=== PATIENT | female | born 1950 | race Caucasian/White ===

== ENCOUNTER 2019-07-17 18:55 | Emergency (ER) | payer BC ==
[2019-07-17] MEDS ORDERED: Norco 10/325 MG Tablet PO ONE (20:59)
[2019-07-17] MEDS ORDERED: ENOXAPARIN SODIUM SQ ONE ×2 (21:00→21:05)
--- NOTE | 2019-07-17 21:01 | ERPHSYRPT ---
- History of Present Illness Time Seen by Provider: 07/17/19 20:30 Source: patient, family Exam Limitations: no limitations Patient Subjective Stated Complaint: Swelling, Redness to right lower extremity Triage Nursing Assessment: Patient ambulated into ED and transferred self to bed. Patient A+O X3. Patient's skin pink, warm and dry. Patient states she [place] [facility] [place] for swelling, redness and warm right lower leg. Patient was sent to [facility] for Venous Doppler to right lower leg. Patient was called at home telling her to come to ER. [phone] and was told they never received an official reading but a verbal was given that states patient has a superficial bloood clot in great saphris vein. Patient's right lower leg noted to be red, warm and swollen. Patient complains of pain only when standing or walking. Patient denies SOB. 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 no cp, no soa. pt does not have a pcp. pt was seen at [facility] in [place]. pt was sent to [facility] to obtain a venous doppler of right lower leg. pt was called and told to go to ED because of a clot present in the superficial greater saphenous vein. no official report but a paper that appears to be an email correspondence stating the above. we were unable to verify findings. additionally, [place] unable to send views to the cloud. no one available to obtain final results. does not appear to have been read. Occurred: other (present for a couple of days) Severity of Pain-Max: mild Severity of Pain-Current: mild Lower Extremities Pain: other: right (tenderness and redness in two places of right lower ext) Modifying Factors: Improves With: other (tenderness on palpation) Allergies/Adverse Reactions: levofloxacin [From Levaquin] Allergy (Verified 07/17/19 19:25) Sulfa (Sulfonamide Antibiotics) Allergy (Verified 07/17/19 19:25) sulfamethoxazole [From Bactrim] Allergy (Verified 07/17/19 19:25) trimethoprim [From Bactrim] Allergy (Verified 07/17/19 19:25) Hx Influenza Vaccination/Date Given: No Hx Pneumococcal Vaccination/Date Given: No Immunizations Up to Date: Yes - Review of Systems Constitutional: No Symptoms Eyes: No Symptoms Ears, Nose, & Throat: No Symptoms Respiratory: No Symptoms Cardiac: No Symptoms Abdominal/Gastrointestinal: No Symptoms Genitourinary Symptoms: No Symptoms Musculoskeletal: No Symptoms Skin: Other (superficial redness and tenderness on two sites of right medial calf) Neurological: No Symptoms Psychological: No Symptoms Endocrine: No Symptoms Hematologic/Lymphatic: No Symptoms Immunological/Allergic: No Symptoms All Other Systems: Reviewed and Negative - Past Medical History Pertinent Past Medical History: No Neurological History: No Pertinent History ENT History: No Pertinent History Cardiac History: No Pertinent History Respiratory History: No Pertinent History Endocrine Medical History: No Pertinent History Musculoskeletal History: No Pertinent History GI Medical History: No Pertinent History History: No Pertinent History Psycho-Social History: No Pertinent History Female Reproductive Disorders: No Pertinent History - Past Surgical History Past Surgical History: No Neuro Surgical History: No Pertinent History Cardiac: Other Respiratory: No Pertinent History Gastrointestinal: No Pertinent History Genitourinary: No Pertinent History Musculoskeletal: No Pertinent History Female Surgical History: No Pertinent History Other Surgical History: Julian Varicose vein surgery - Social History Smoking Status: Never smoker Exposure to second hand smoke: No Drug Use: none Patient Lives Alone: No - Female History Hx Last Menstrual Period: menopausal Hx Now: No - Nursing Vital Signs Nursing Vital Signs: Initial Vital Signs Temperature 98.3 F 07/17/19 19:30 Pulse Rate 76 07/17/19 19:30 Respiratory Rate 20 07/17/19 19:30 Blood Pressure 168/88 07/17/19 19:30 O2 Sat by Pulse Oximetry 96 07/17/19 19:30 Pain Scale Pain Intensity 0 - Physical Exam General Appearance: no apparent distress, alert, anxiety Eyes, Ears, Nose, Throat Exam: normal ENT inspection, moist mucous membranes Neck Exam: normal inspection, non-tender, supple, full range of motion Cardiovascular/Respiratory Exam: chest non-tender Gastrointestinal/Abdominal Exam: non-tender Back Exam: normal inspection, normal range of motion, No CVA tenderness, No vertebral tenderness Hips Exam: bilateral: non-tender, normal inspection, normal range of motion, no evidence of injury Legs Exam: right leg: soft tissue tenderness (redness medial aspect right calf) , left leg: non-tender, normal inspection, normal range of motion, no evidence of injury Knees Exam: bilateral knee: non-tender, normal inspection, normal range of motion, no evidence of injury Ankle Exam: bilateral ankle: non-tender, normal inspection, normal range of motion, no evidence of injury Foot Exam: bilateral foot: non-tender, normal inspection, normal range of motion Neuro/Tendon Exam: normal sensation, normal motor functions, normal tendon functions Mental Status Exam: alert, oriented x 3, cooperative Skin Exam: other (see above) SpO2 Interpretation: normal SpO2: 96 O2 Delivery: Room Air Ordered Tests: Medication Summary Discontinued Medications Generic Name Dose Route Start Last Admin Trade Name Veronica PRN Reason Stop Dose Admin Hydrocodone Bitart/Acetaminophen 1 tab 07/17/19 20:59 07/17/19 21:10 Franklin 10/325 Mg Tablet PO 07/17/19 21:00 Not Given STAT ONE Hydrocodone Bitart/Acetaminophen Confirm 07/17/19 21:05 Franklin 10/325 Mg Tablet Administered 07/17/19 21:06 Dose 1 tab .ROUTE .STK-MED ONE Enoxaparin Sodium 80 mg 07/17/19 21:00 07/17/19 21:08 Enoxaparin Sodium SQ 07/17/19 21:01 80 mg STAT ONE Administration Enoxaparin Sodium Confirm 07/17/19 21:05 Enoxaparin Sodium Administered 07/17/19 21:06 Dose 80 mg SQ .STK-MED ONE - Progress Progress: unchanged Progress Note: 07/17/19 21:54 i feel pt most like has a superficial thrombophlebitis. however, report given to patient states to go to ED in order for evaluation to maybe begin anticoag tx. however, clots in superficial greater saphenous veins are not typically tx with anticoag. since i do not have a full report or the ability to obtain study , will tx temporarily with lovenox, have pt obtain full and final report and have pt follow up with dr. nuñez wednesday07/19/19. i have d/w him and he agrees. Counseled pt/family regarding: diagnosis, need for follow-up - Departure Departure Disposition: Home Clinical Impression: Superficial thrombophlebitis, Greater saphenous vein embolism Condition: Stable Critical Care Time: No Referrals: DOCTOR,NO FAMILY [Primary Care Provider] - Additional Instructions: Warm compresses to right lower leg site 2 times daily for 15 minutes not directly on skinfollow up tomorrow with [facility] to obtain full and final venous doppler report. give yourself lovenox injection as prescribed tomorrow. call dr. Nuñez' office tomorrow to arrange for follow up appointment on Wednesday07/19/19. Tell them Dr. Mobley spoke with Dr. Nuñez. Prescriptions: Enoxaparin Sodium [Lovenox] 80 mg SQ BID #2 syr
[2019-07-17] MEDS ORDERED: Norco 10/325 MG Tablet ONE (21:05)
[2019-07-17 22:26] VITALS: BP 133/74; PULSE 68; O2SAT 95
== END 2019-07-17 22:25 | disposition home or self-care (01) ==
LOC: ED 18:55
DX: I80.01 Phlebitis and thrombophlebitis of superficial vessels of right lower extremity (principal); M79.89 Other specified soft tissue disorders; I83.90 Asymptomatic varicose veins of unspecified lower extremity
CPT/HCPCS: 96372; 99283; J1650; A9270-GY

== ENCOUNTER 2021-07-06 16:34 | Inpatient (IN) | payer BC, MEDICARE ==
[2021-07-06] MEDS: Ativan 1 MG PO PRN (23:16)
[2021-07-06] MEDS: TYLENOL EXTRA STRENGTH 500 MG PO PRN (23:16)
[2021-07-07 06:34] LABS: Hematocrit 46.8 % (35-47); Hemoglobin 14.9 gm/dl (12.0-16.0); Mean Cell Volume 91.2 fl (78-100); Mean Corpuscular Hgb Concent. 31.8 g/dl (32-36); Mean Platelet Volume 10.5 fl (7.5-11.0); Platelet Count 307 K/mm3 (150-450); Red Blood Count 5.13 M/mm3 (4.1-5.4); Red Cell Distribution Width 13.9 % (11.5-14.0); White Blood Count 8.2 K/mm3 (4.0-10.5)
[2021-07-07] MEDS ORDERED: Sodium Chloride 0.9% 10 ML FLUSH Syringe IV PRN (07:30)
[2021-07-07] MEDS: Ativan 1 MG PO PRN ×3 (08:14→22:37)
[2021-07-07] MEDS: TYLENOL EXTRA STRENGTH 500 MG PO PRN ×3 (08:14→22:37)
[2021-07-07] MEDS: DECADRON 10MG INJ. IV SCH (09:31)
[2021-07-07] MEDS: REMDESIVIR 100 MG in Sodium Chloride 0.9% 100 ML BAG 100 ML IV SCH (09:31)
[2021-07-07] MEDS: ENOXAPARIN SODIUM SQ SCH (09:32)
[2021-07-07] MEDS ORDERED: Decadron 4 MG INJ IV SCH (10:00)
--- NOTE | 2021-07-07 12:29 | XRAY ---
Indication: Positive Covid 19. Comparison: None Portable chest demonstrates diffuse bilateral airspace disease greatest in right upper lobe. Incidental right upper lobe calcified granuloma and right hemidiaphragm elevation. Heart not enlarged. Bony thorax intact.
[2021-07-07] MEDS: OLUMIANT PO SCH (13:05)
--- NOTE | 2021-07-07 14:59 | HP ---
CHIEF COMPLAINT: Shortness of breath, headache, weakness. HISTORY OF PRESENT ILLNESS: The patient was transferred from [facility][1] in order to get close to home. She had been there four days being treated with COVID drugs. She has not had the vaccine. She does not smoke. She has been treated with Zithromax, Rocephin, Dexamethasone, enoxaparin 40 mg, Remdesivir daily, Tylenol, Albuterol, Dexamethasone 6 mg a day, Tylenol. She was hypoxic on admission to [facility] with 80% on room air. She has remained hypoxic unless she has got 5 liters on by nasal cannula. PAST MEDICAL HISTORY: Occasional migraine. She denies any blood clots or diabetes. She states she was mildly hypertensive at [facility] but is not hypertensive at home. Her tested positive for COVID before she did. PHYSICAL EXAMINATION: The patient is an appropriately aged 71 year-old white female who is pleasant and is in obvious pain clutching her head with a migraine. VITAL SIGNS: Temperature 98.2F, blood pressure 142/70. O2 saturation 92% on 5 liters. HEENT: Pupils equal and reactive to light. NECK: Supple. No adenopathy. CHEST: Few crackles bilateral. CVS: Regular rate. No murmurs or gallops. ABDOMEN: Soft. No masses or organomegaly. Slightly heavy. EXTREMITIES: Good pulses. No edema. No cyanosis. IMPRESSION: The patient has COVID pneumonia, migraine headache. CT showed some nodules 5 mm which are probably not significant which will be followed up with by her primary care doctor once she recovers from this. PROGNOSIS: Fair.
[2021-07-07] MEDS: Sodium Chloride 0.9% 10 ML FLUSH Syringe IV SCH ×2 (16:53→21:02)
[2021-07-07] MEDS ORDERED: REMDESIVIR 100 MG in Sodium Chloride 0.9% 100 ML BAG 100 ML IV SCH (22:29)
[2021-07-08 05:44] LABS: Hematocrit 45.3 % (35-47); Hemoglobin 14.4 gm/dl (12.0-16.0); Mean Cell Volume 92.3 fl (78-100); Mean Corpuscular Hemoglobin 29.3 pg (26-32); Mean Corpuscular Hgb Concent. 31.8 g/dl (32-36); Mean Platelet Volume 9.4 fl (7.5-11.0); Platelet Count 362 K/mm3 (150-450); Red Blood Count 4.91 M/mm3 (4.1-5.4); Red Cell Distribution Width 14.1 % (11.5-14.0); White Blood Count 9.6 K/mm3 (4.0-10.5)
[2021-07-08] MEDS: Sodium Chloride 0.9% 10 ML FLUSH Syringe IV SCH ×3 (05:47→22:46)
[2021-07-08 06:30] LABS: ALBUMIN 3.2 g/dL (3.5-5.0); ALKALINE PHOSPHATASE 45 U/L (38-126); ANION GAP 9.8 MEQ/L (5-15); BLOOD UREA NITROGEN 28 mg/dL (7-17); CHLORIDE 104 mmol/L (98-107); Carbon Dioxide 28 mmol/L (22-30); Creatinine 1 0.66 mg/dL (0.52-1.04); EST GLOMERULAR FILTRATION RATE > 60.0 ML/MIN; Glucose 113 mg/dL (74-106); Potassium 4.4 mmol/L (3.5-5.1); SGOT/AST 33 U/L (14-36); SGPT/ALT 31 U/L (0-35); SODIUM 137 mmol/L (137-145); Total Protein 6.3 g/dL (6.3-8.2)
[2021-07-08] MEDS ORDERED: Ventolin Hfa MDI IH PRN (07:13)
[2021-07-08] MEDS ORDERED: VENTOLIN COMMON CANISTER IH PRN (07:15)
[2021-07-08 08:04] LABS: ANISOCYTOSIS 1+; Lymphocytes 8 % (24-44); Monocyte 6 % (0.0-12.0); Neutrophils 86 % (36.0-66.0); Platelet Estimate NORMAL (NORMAL); Total Cells Counted 100
[2021-07-08] MEDS: DECADRON 10MG INJ. IV SCH (10:08)
[2021-07-08] MEDS: ZOLOFT 50 MG TABLET PO SCH (10:08)
[2021-07-08] MEDS: ENOXAPARIN SODIUM SQ SCH (10:08)
[2021-07-08] MEDS: NORVASC 5 MG PO SCH (10:08)
[2021-07-08] MEDS: REMDESIVIR 100 MG in Sodium Chloride 0.9% 100 ML BAG 100 ML IV SCH (10:08)
[2021-07-08] MEDS: OLUMIANT PO SCH (13:47)
[2021-07-09] MEDS: Sodium Chloride 0.9% 10 ML FLUSH Syringe IV SCH ×3 (06:04→20:03)
[2021-07-09 06:11] LABS: INR 1.25 (0.8-3.0); PROTIME 14.7 SECONDS (9.4-12.5)
[2021-07-09 06:30] LABS: ALBUMIN 3.4 g/dL (3.5-5.0); ALKALINE PHOSPHATASE 51 U/L (38-126); BLOOD UREA NITROGEN 33 mg/dL (7-17); CHLORIDE 105 mmol/L (98-107); Calcium 9.2 mg/dL (8.4-10.2); Carbon Dioxide 28 mmol/L (22-30); Creatinine 1 0.78 mg/dL (0.52-1.04); EST GLOMERULAR FILTRATION RATE > 60.0 ML/MIN; Glucose 116 mg/dL (74-106); Potassium 4.4 mmol/L (3.5-5.1); SGOT/AST 40 U/L (14-36); SGPT/ALT 30 U/L (0-35); SODIUM 140 mmol/L (137-145); Total Protein 6.5 g/dL (6.3-8.2)
[2021-07-09] MEDS: REMDESIVIR 100 MG in Sodium Chloride 0.9% 100 ML BAG 100 ML IV SCH (09:46)
[2021-07-09] MEDS: OLUMIANT PO SCH (09:49)
[2021-07-09] MEDS: NORVASC 5 MG PO SCH (09:50)
[2021-07-09] MEDS: DECADRON 10MG INJ. IV SCH (09:50)
[2021-07-09] MEDS: ENOXAPARIN SODIUM SQ SCH (09:50)
[2021-07-09] MEDS: ZOLOFT 50 MG TABLET PO SCH (09:50)
--- NOTE | 2021-07-09 11:51 | PROG NOTE ---
DATE: 07/09/2021 CHIEF COMPLAINT: Shortness of breath, confusion, achiness. HISTORY OF PRESENT ILLNESS: A 71-year-old white female presented to the emergency room probably in [place] and transferred to [facility] on 06/23/2021. She tested for COVID about that day. The is positive but not real sick. She had a progressive declined and ended up at [facility]. I guess she was unhappy there after several days and asked to be transferred closer to home. Extreme fatigue. No chest pain. Denied fever or chills when she was admitted. She has a very little cough then or now. She was hypoxic, 80% on room air otherwise stable. Laboratory work was normal. Chest x-ray showed bibasilar infiltrates on admission at [place] and she was started on dexamethasone. MEDICATIONS: At home were Albuterol PRN, Xanax 0.25 every six hours PRN anxiety, Norvasc 5, hydralazine 10 mg t.i.d., Zoloft 50 q.d., ubidecarenone (Co Q-10). Lovenox 80 subcu apparently just a [facility] dose. These were continued except we adjusted her subcu Lovenox, held hydralazine as her blood pressure is not high and that is an ancient medicine with fatigue as a side effect especially in the elderly. Her Co Q-10 was also held. ALLERGIES: AZITHROMYCIN. LEVOFLOXACIN. SULFAMETHOXAZOLE. TRIMETHOPRIM. REVIEW OF SYSTEMS: CONSTITUTIONAL: No fever, chills or sweats. HEENT: No specific problems hearing or seeing. CVS: Denies heart problems. PULMONARY: Nonsmoker. No abdominal pain. MUSCULOSKELETAL: Very weak, achy all over. LAB DATA AND TESTS: Her blood work showed her white count was normal. D-dimer was markedly elevated. Chest x-ray showed bilateral pneumonia, will repeat that tomorrow as it has been several days. D-dimer was like 1700. Albumin slightly low at 3.4. PHYSICAL EXAMINATION: The patient speaks clearly. She has got a very tired voice. She is confused to place, time and who I am at first but after several days though she recognized me and that I took care of her mother and had more definite questions as "How is my " who is much better and this was after we decreased anxiety medicine of Ativan. VITAL SIGNS: Pulse 90, respirations 20. O2 saturation 90% on 15 liters this morning with an Oxymizer. IMPRESSION: The patient has: 1) COVID pneumonia severe. She had a CT scan which showed some pulmonary nodules that are probably too small to be anything but granulomas and she will be followed up in one year. 2) Possible history of hypertension. 3) History of some delirium maybe related to disease and may be related to medication. I will further evaluate her as she gets well. PLAN: Remdesivir, dexamethasone, Lovenox, Imitrex for migraine she is having. Olumiant 4 mg q.d., Ativan if she gets anxious, continue her Norvasc, Xanax 0.25 PRN, Zoloft 50 q.d. PROGNOSIS: Fair.
[2021-07-10] MEDS: Sodium Chloride 0.9% 10 ML FLUSH Syringe IV SCH ×2 (04:24→18:58)
[2021-07-10 05:44] LABS: INR 1.22 (0.8-3.0); PROTIME 14.4 SECONDS (9.4-12.5)
[2021-07-10 05:45] LABS: ALBUMIN 3.7 g/dL (3.5-5.0); ALKALINE PHOSPHATASE 53 U/L (38-126); BLOOD UREA NITROGEN 32 mg/dL (7-17); CHLORIDE 103 mmol/L (98-107); Calcium 9.5 mg/dL (8.4-10.2); Carbon Dioxide 31 mmol/L (22-30); Creatinine 1 0.83 mg/dL (0.52-1.04); EST GLOMERULAR FILTRATION RATE > 60.0 ML/MIN; Glucose 111 mg/dL (74-106); Potassium 4.6 mmol/L (3.5-5.1); SGOT/AST 39 U/L (14-36); SGPT/ALT 33 U/L (0-35); SODIUM 140 mmol/L (137-145)
[2021-07-10 07:44] LABS: Absolute Neutrophil Ct (ANC) 7.94 (1.4-6.9); Basophil (Absolute #) 0 (0-0.4); Eosinophil (Absolute #) 0 (0-0.5); Hemoglobin 15.9 gm/dl (12.0-16.0); Lymphocyte (Absolute #) 0.99 (1.0-4.6); Mean Cell Volume 93.6 fl (78-100); Mean Corpuscular Hemoglobin 29.2 pg (26-32); Mean Corpuscular Hgb Concent. 31.2 g/dl (32-36); Mean Platelet Volume 10.4 fl (7.5-11.0); Monocyte (Absolute #) 0.98 (0.0-1.3); Monocytes % 9.9 % (0.0-12.0); Neutrophil % 80.1 % (36.0-66.0); Platelet Count 357 K/mm3 (150-450); Red Blood Count 5.45 M/mm3 (4.1-5.4); Red Cell Distribution Width 14.2 % (11.5-14.0); White Blood Count 9.9 K/mm3 (4.0-10.5)
--- NOTE | 2021-07-10 08:34 | XRAY ---
Indication: Short of breath. Positive Covid 19. Comparison: July 07, 2021. Portable chest again demonstrates diffuse bilateral airspace disease with new patchy consolidations greatest in both lung bases and new small left effusion. Again incidental right upper lobe calcified granuloma and right hemidiaphragm elevation. Heart not enlarged for AP portable technique.
[2021-07-10] MEDS: NORVASC 5 MG PO SCH (09:36)
[2021-07-10] MEDS: DECADRON 10MG INJ. IV SCH (09:36)
[2021-07-10] MEDS: OLUMIANT PO SCH (09:36)
[2021-07-10] MEDS: ZOLOFT 50 MG TABLET PO SCH (09:36)
[2021-07-10] MEDS: ENOXAPARIN SODIUM SQ SCH (09:38)
[2021-07-10] MEDS: REMDESIVIR 100 MG in Sodium Chloride 0.9% 100 ML BAG 100 ML IV SCH (09:38)
[2021-07-11] MEDS: Sodium Chloride 0.9% 10 ML FLUSH Syringe IV SCH ×4 (02:16→23:01)
[2021-07-11 07:27] LABS: Absolute Neutrophil Ct (ANC) 6.22 (1.4-6.9); BASOPHIL % 0.1 % (0.0-0.4); Basophil (Absolute #) 0.01 (0-0.4); Eosinophil (Absolute #) 0 (0-0.5); Hematocrit 48.5 % (35-47); Hemoglobin 15.5 gm/dl (12.0-16.0); Lymphocytes % 12.1 % (24.0-44.0); Mean Corpuscular Hemoglobin 29.4 pg (26-32); Mean Platelet Volume 9.7 fl (7.5-11.0); Monocyte (Absolute #) 1.02 (0.0-1.3); Monocytes % 12.4 % (0.0-12.0); Neutrophil % 75.4 % (36.0-66.0); Platelet Count 306 K/mm3 (150-450); Red Blood Count 5.27 M/mm3 (4.1-5.4); Red Cell Distribution Width 13.8 % (11.5-14.0); White Blood Count 8.3 K/mm3 (4.0-10.5)
[2021-07-11 07:41] LABS: INR 1.27 (0.8-3.0)
[2021-07-11 07:55] LABS: ALBUMIN 3.5 g/dL (3.5-5.0); ALKALINE PHOSPHATASE 49 U/L (38-126); ANION GAP 9.9 MEQ/L (5-15); BLOOD UREA NITROGEN 31 mg/dL (7-17); CHLORIDE 104 mmol/L (98-107); Calcium 9.2 mg/dL (8.4-10.2); Carbon Dioxide 29 mmol/L (22-30); Creatinine 1 0.68 mg/dL (0.52-1.04); EST GLOMERULAR FILTRATION RATE > 60.0 ML/MIN; Glucose 112 mg/dL (74-106); SGOT/AST 30 U/L (14-36); SGPT/ALT 28 U/L (0-35); SODIUM 139 mmol/L (137-145); Total Protein 6.5 g/dL (6.3-8.2)
[2021-07-11] MEDS: ENOXAPARIN SODIUM SQ SCH (09:21)
[2021-07-11] MEDS: NORVASC 5 MG PO SCH (09:21)
[2021-07-11] MEDS: DECADRON 10MG INJ. IV SCH (09:21)
[2021-07-11] MEDS: OLUMIANT PO SCH (09:21)
[2021-07-11] MEDS: ZOLOFT 50 MG TABLET PO SCH (09:21)
--- NOTE | 2021-07-11 12:53 | PROG NOTE ---
CHIEF COMPLAINT: Short of breath. HISTORY OF PRESENT ILLNESS: A 71 year-old white female who has been hospitalized she states for two weeks with COVID. She is now alert, orientated, much better than when she came in. Unfortunately her lungs have been pretty well devastated by the COVID. She has been on all her usual medications. She is still requiring high flow oxygen and not really improving any. She is sitting up occasionally in a chair. She is able to eat and drink okay, rather sleepy a lot. CMP was normal three days ago. Her D-dimer is still elevated. Chest few crackles. Heart sounds regular. LAB DATA AND TESTS: Her chest x-ray were three days ago and showed diffuse bilateral airspace disease with patchy consolidation in both lungs more in upper. IMPRESSION: I explained to her that it going to be a couple of weeks before she can go home because she just cannot go home on the level of oxygen that she is on now. We cannot supply that plus she is weak. Her disease seems to be stable and progressive. It seems like she is left with the damage. Will continue with the Remdesivir, steroids. We cut her Ativan down due to some confusion. Blood pressure is okay without Apresoline. Zoloft will be continued. PROGNOSIS: Fair.
[2021-07-12] MEDS: Sodium Chloride 0.9% 10 ML FLUSH Syringe IV SCH ×3 (06:45→22:51)
[2021-07-12 06:54] LABS: Absolute Neutrophil Ct (ANC) 7.24 (1.4-6.9); Basophil (Absolute #) 0 (0-0.4); Eosinophil (Absolute #) 0 (0-0.5); Hematocrit 47.8 % (35-47); Hemoglobin 15.4 gm/dl (12.0-16.0); Lymphocyte (Absolute #) 1.14 (1.0-4.6); Lymphocytes % 12.1 % (24.0-44.0); Mean Cell Volume 91.4 fl (78-100); Mean Corpuscular Hemoglobin 29.4 pg (26-32); Mean Corpuscular Hgb Concent. 32.2 g/dl (32-36); Monocyte (Absolute #) 1.06 (0.0-1.3); Monocytes % 11.2 % (0.0-12.0); Neutrophil % 76.7 % (36.0-66.0); Platelet Count 310 K/mm3 (150-450); Red Blood Count 5.23 M/mm3 (4.1-5.4); Red Cell Distribution Width 13.8 % (11.5-14.0); White Blood Count 9.4 K/mm3 (4.0-10.5)
[2021-07-12 06:59] LABS: INR 1.24 (0.8-3.0); PROTIME 14.6 SECONDS (9.4-12.5)
[2021-07-12 07:00] LABS: ALBUMIN 3.5 g/dL (3.5-5.0); ALKALINE PHOSPHATASE 49 U/L (38-126); ANION GAP 11.8 MEQ/L (5-15); BLOOD UREA NITROGEN 32 mg/dL (7-17); CHLORIDE 105 mmol/L (98-107); Calcium 9.2 mg/dL (8.4-10.2); Carbon Dioxide 28 mmol/L (22-30); Creatinine 1 0.82 mg/dL (0.52-1.04); EST GLOMERULAR FILTRATION RATE > 60.0 ML/MIN; Glucose 99 mg/dL (74-106); Potassium 4.1 mmol/L (3.5-5.1); SGOT/AST 27 U/L (14-36); SGPT/ALT 25 U/L (0-35); SODIUM 141 mmol/L (137-145); Total Protein 6.6 g/dL (6.3-8.2)
[2021-07-12] MEDS: OLUMIANT PO SCH (10:10)
[2021-07-12] MEDS: ZOLOFT 50 MG TABLET PO SCH (10:10)
[2021-07-12] MEDS: ENOXAPARIN SODIUM SQ SCH (10:10)
[2021-07-12] MEDS: NORVASC 5 MG PO SCH (10:10)
[2021-07-12] MEDS: DECADRON 10MG INJ. IV SCH (10:11)
[2021-07-12] MEDS: REMDESIVIR 100 MG in Sodium Chloride 0.9% 100 ML BAG 100 ML IV SCH (11:02)
--- NOTE | 2021-07-12 19:25 | XRAY ---
Indication: Follow-up Covid 19. Comparison: July 10, 2021. Portable chest demonstrates grossly stable diffuse bilateral consolidating/nonconsolidating airspace disease. No large effusion. Heart not enlarged. No new cardiopulmonary abnormalities.
[2021-07-13] MEDS: xanAX 0.25 MG PO SCH ×2 (02:04→12:57)
[2021-07-13] MEDS: Sodium Chloride 0.9% 10 ML FLUSH Syringe IV SCH ×4 (06:15→21:17)
[2021-07-13 07:35] LABS: Absolute Neutrophil Ct (ANC) 6.71 (1.4-6.9); Basophil (Absolute #) 0 (0-0.4); Eosinophil (Absolute #) 0 (0-0.5); Hematocrit 46.8 % (35-47); Lymphocyte (Absolute #) 1.32 (1.0-4.6); Lymphocytes % 14.5 % (24.0-44.0); Mean Cell Volume 92.7 fl (78-100); Mean Corpuscular Hemoglobin 29.7 pg (26-32); Mean Corpuscular Hgb Concent. 32.1 g/dl (32-36); Mean Platelet Volume 10.2 fl (7.5-11.0); Monocyte (Absolute #) 1.07 (0.0-1.3); Monocytes % 11.8 % (0.0-12.0); Neutrophil % 73.7 % (36.0-66.0); Platelet Count 284 K/mm3 (150-450); Red Blood Count 5.05 M/mm3 (4.1-5.4); White Blood Count 9.1 K/mm3 (4.0-10.5)
[2021-07-13 07:36] LABS: INR 1.24 (0.8-3.0); PROTIME 14.6 SECONDS (9.4-12.5)
[2021-07-13 07:43] LABS: ALBUMIN 3.4 g/dL (3.5-5.0); ALKALINE PHOSPHATASE 48 U/L (38-126); ANION GAP 9.6 MEQ/L (5-15); BLOOD UREA NITROGEN 31 mg/dL (7-17); CHLORIDE 104 mmol/L (98-107); Carbon Dioxide 28 mmol/L (22-30); Creatinine 1 0.76 mg/dL (0.52-1.04); EST GLOMERULAR FILTRATION RATE > 60.0 ML/MIN; Glucose 93 mg/dL (74-106); SGOT/AST 31 U/L (14-36); SGPT/ALT 21 U/L (0-35); SODIUM 138 mmol/L (137-145); Total Protein 6.3 g/dL (6.3-8.2)
[2021-07-13] MEDS: NORVASC 5 MG PO SCH (09:18)
[2021-07-13] MEDS: ZOLOFT 50 MG TABLET PO SCH (09:18)
[2021-07-13] MEDS: DECADRON 10MG INJ. IV SCH (09:19)
[2021-07-13] MEDS: OLUMIANT PO SCH (09:19)
[2021-07-13] MEDS: ENOXAPARIN SODIUM SQ SCH (09:19)
[2021-07-13] MEDS: REMDESIVIR 100 MG in Sodium Chloride 0.9% 100 ML BAG 100 ML IV SCH (09:24)
[2021-07-13] MEDS: TYLENOL EXTRA STRENGTH 500 MG PO PRN (16:29)
[2021-07-13] MEDS: Ativan 1 MG PO PRN (17:27)
[2021-07-14] MEDS: TYLENOL EXTRA STRENGTH 500 MG PO PRN (01:49)
[2021-07-14] MEDS: xanAX 0.25 MG PO SCH ×2 (01:49→21:30)
[2021-07-14 06:05] LABS: Absolute Neutrophil Ct (ANC) 6.32 (1.4-6.9); Basophil (Absolute #) 0 (0-0.4); Eosinophil (Absolute #) 0 (0-0.5); Hematocrit 46.6 % (35-47); Hemoglobin 14.6 gm/dl (12.0-16.0); Lymphocyte (Absolute #) 1.09 (1.0-4.6); Lymphocytes % 13.2 % (24.0-44.0); Mean Cell Volume 93.2 fl (78-100); Mean Corpuscular Hemoglobin 29.2 pg (26-32); Mean Corpuscular Hgb Concent. 31.3 g/dl (32-36); Mean Platelet Volume 10.1 fl (7.5-11.0); Monocyte (Absolute #) 0.86 (0.0-1.3); Monocytes % 10.4 % (0.0-12.0); Neutrophil % 76.4 % (36.0-66.0); Platelet Count 271 K/mm3 (150-450); Red Cell Distribution Width 13.8 % (11.5-14.0); White Blood Count 8.3 K/mm3 (4.0-10.5)
[2021-07-14] MEDS: Sodium Chloride 0.9% 10 ML FLUSH Syringe IV SCH ×3 (06:12→21:29)
[2021-07-14 06:16] LABS: ALBUMIN 3.3 g/dL (3.5-5.0); ALKALINE PHOSPHATASE 43 U/L (38-126); ANION GAP 9.7 MEQ/L (5-15); BLOOD UREA NITROGEN 31 mg/dL (7-17); CHLORIDE 104 mmol/L (98-107); Calcium 8.8 mg/dL (8.4-10.2); Carbon Dioxide 29 mmol/L (22-30); Creatinine 1 0.69 mg/dL (0.52-1.04); EST GLOMERULAR FILTRATION RATE > 60.0 ML/MIN; Glucose 89 mg/dL (74-106); Potassium 4.1 mmol/L (3.5-5.1); SGOT/AST 25 U/L (14-36); SGPT/ALT 18 U/L (0-35); SODIUM 139 mmol/L (137-145); Total Protein 6.1 g/dL (6.3-8.2)
[2021-07-14 06:21] LABS: INR 1.24 (0.8-3.0); PROTIME 14.6 SECONDS (9.4-12.5)
[2021-07-14 07:06] LABS: Appearance SLIGHTLY CLOUDY (CLEAR); Bacteria RARE /HPF (NEGATIVE); Bilirubin NEGATIVE (NEGATIVE); Blood NEGATIVE Ery/ul (0-5); Epithelial Cells RARE /HPF (FEW); Glucose NEGATIVE (NEGATIVE); Ketones NEGATIVE (NEGATIVE); Leukocyte Esterase TRACE (NEGATIVE); Mucus SLIGHT /HPF (NEGATIVE); Nitrite NEGATIVE (NEGATIVE); Protein,Urine Dip NEGATIVE (Negative); RBC 0-2 /HPF (0-2); Specific Gravity 1.029 (1.005-1.025); Urobilinogen NEGATIVE mg/dL (0-1)
[2021-07-14] MEDS: DECADRON 10MG INJ. IV SCH (10:26)
[2021-07-14] MEDS: ENOXAPARIN SODIUM SQ SCH (10:29)
[2021-07-14] MEDS: NORVASC 5 MG PO SCH (10:29)
[2021-07-14] MEDS: OLUMIANT PO SCH (10:29)
[2021-07-14] MEDS: ZOLOFT 50 MG TABLET PO SCH (10:29)
[2021-07-14] MEDS: REMDESIVIR 100 MG in Sodium Chloride 0.9% 100 ML BAG 100 ML IV SCH (10:29)
[2021-07-14] MEDS: Ativan 1 MG PO PRN ×2 (12:54→21:32)
[2021-07-15 06:04] LABS: Absolute Neutrophil Ct (ANC) 5.56 (1.4-6.9); BASOPHIL % 0.1 % (0.0-0.4); Basophil (Absolute #) 0.01 (0-0.4); Eosinophil (Absolute #) 0 (0-0.5); Hematocrit 45.6 % (35-47); Hemoglobin 14.2 gm/dl (12.0-16.0); Lymphocyte (Absolute #) 1.14 (1.0-4.6); Lymphocytes % 15.3 % (24.0-44.0); Mean Cell Volume 92.9 fl (78-100); Mean Corpuscular Hemoglobin 28.9 pg (26-32); Mean Corpuscular Hgb Concent. 31.1 g/dl (32-36); Mean Platelet Volume 9.9 fl (7.5-11.0); Monocyte (Absolute #) 0.73 (0.0-1.3); Monocytes % 9.8 % (0.0-12.0); Neutrophil % 74.8 % (36.0-66.0); Platelet Count 246 K/mm3 (150-450); Red Blood Count 4.91 M/mm3 (4.1-5.4); Red Cell Distribution Width 13.6 % (11.5-14.0); White Blood Count 7.4 K/mm3 (4.0-10.5)
[2021-07-15] MEDS: Sodium Chloride 0.9% 10 ML FLUSH Syringe IV SCH ×3 (06:16→21:22)
[2021-07-15 06:17] LABS: INR 1.26 (0.8-3.0); PROTIME 14.9 SECONDS (9.4-12.5)
[2021-07-15 06:24] LABS: ALBUMIN 3.1 g/dL (3.5-5.0); ALKALINE PHOSPHATASE 42 U/L (38-126); ANION GAP 8.7 MEQ/L (5-15); BLOOD UREA NITROGEN 26 mg/dL (7-17); CHLORIDE 104 mmol/L (98-107); Calcium 8.6 mg/dL (8.4-10.2); Carbon Dioxide 28 mmol/L (22-30); Creatinine 1 0.62 mg/dL (0.52-1.04); EST GLOMERULAR FILTRATION RATE > 60.0 ML/MIN; Glucose 88 mg/dL (74-106); Potassium 4.1 mmol/L (3.5-5.1); SGOT/AST 31 U/L (14-36); SGPT/ALT 19 U/L (0-35); SODIUM 137 mmol/L (137-145); Total Protein 5.8 g/dL (6.3-8.2)
[2021-07-15] MEDS: ENOXAPARIN SODIUM SQ SCH (09:15)
[2021-07-15] MEDS: DECADRON 10MG INJ. IV SCH (09:16)
[2021-07-15] MEDS: NORVASC 5 MG PO SCH (09:16)
[2021-07-15] MEDS: OLUMIANT PO SCH (09:16)
[2021-07-15] MEDS: xanAX 0.25 MG PO PRN (09:16)
[2021-07-15] MEDS: ZOLOFT 50 MG TABLET PO SCH (09:16)
[2021-07-15] MEDS: TYLENOL EXTRA STRENGTH 500 MG PO PRN ×2 (09:17→21:22)
[2021-07-15] MEDS: REMDESIVIR 100 MG in Sodium Chloride 0.9% 100 ML BAG 100 ML IV SCH (09:33)
[2021-07-15] MEDS: Ativan 1 MG PO PRN (21:22)
[2021-07-16 05:53] LABS: Basophil (Absolute #) 0 (0-0.4); Eosinophil (Absolute #) 0 (0-0.5); Hematocrit 44.8 % (35-47); Hemoglobin 14.3 gm/dl (12.0-16.0); Lymphocyte (Absolute #) 1.19 (1.0-4.6); Lymphocytes % 15.4 % (24.0-44.0); Mean Cell Volume 92.2 fl (78-100); Mean Corpuscular Hemoglobin 29.4 pg (26-32); Mean Corpuscular Hgb Concent. 31.9 g/dl (32-36); Mean Platelet Volume 10.2 fl (7.5-11.0); Monocyte (Absolute #) 0.82 (0.0-1.3); Monocytes % 10.6 % (0.0-12.0); Platelet Count 229 K/mm3 (150-450); Red Blood Count 4.86 M/mm3 (4.1-5.4); Red Cell Distribution Width 13.6 % (11.5-14.0); White Blood Count 7.7 K/mm3 (4.0-10.5)
[2021-07-16 06:12] LABS: ALBUMIN 3.1 g/dL (3.5-5.0); ALKALINE PHOSPHATASE 47 U/L (38-126); ANION GAP 8.4 MEQ/L (5-15); BLOOD UREA NITROGEN 26 mg/dL (7-17); CHLORIDE 103 mmol/L (98-107); Calcium 8.8 mg/dL (8.4-10.2); Carbon Dioxide 29 mmol/L (22-30); Creatinine 1 0.68 mg/dL (0.52-1.04); EST GLOMERULAR FILTRATION RATE > 60.0 ML/MIN; Glucose 98 mg/dL (74-106); Potassium 3.9 mmol/L (3.5-5.1); SGOT/AST 28 U/L (14-36); SGPT/ALT 24 U/L (0-35); SODIUM 137 mmol/L (137-145); Total Protein 5.9 g/dL (6.3-8.2)
[2021-07-16] MEDS: Sodium Chloride 0.9% 10 ML FLUSH Syringe IV SCH ×3 (06:46→23:55)
[2021-07-16 06:50] LABS: INR 1.21 (0.8-3.0); PROTIME 14.3 SECONDS (9.4-12.5)
[2021-07-16] MEDS: DECADRON 10MG INJ. IV SCH (08:58)
[2021-07-16] MEDS: OLUMIANT PO SCH (08:58)
[2021-07-16] MEDS: ENOXAPARIN SODIUM SQ SCH (08:58)
[2021-07-16] MEDS: TYLENOL EXTRA STRENGTH 500 MG PO PRN (08:59)
[2021-07-16] MEDS: NORVASC 5 MG PO SCH (08:59)
[2021-07-16] MEDS: ZOLOFT 50 MG TABLET PO SCH (08:59)
[2021-07-16] MEDS: xanAX 0.25 MG PO PRN (08:59)
[2021-07-16] MEDS: REMDESIVIR 100 MG in Sodium Chloride 0.9% 100 ML BAG 100 ML IV SCH (09:57)
[2021-07-17] MEDS: Ativan 1 MG PO PRN (00:10)
[2021-07-17] MEDS: TYLENOL EXTRA STRENGTH 500 MG PO PRN (00:10)
[2021-07-17 06:30] LABS: Hematocrit 44.7 % (35-47); Hemoglobin 14.3 gm/dl (12.0-16.0); Mean Cell Volume 91.6 fl (78-100); Mean Corpuscular Hemoglobin 29.3 pg (26-32); Mean Platelet Volume 10.5 fl (7.5-11.0); Platelet Count 213 K/mm3 (150-450); Red Blood Count 4.88 M/mm3 (4.1-5.4); Red Cell Distribution Width 13.6 % (11.5-14.0); White Blood Count 14.1 K/mm3 (4.0-10.5)
[2021-07-17 06:44] LABS: ALBUMIN 3.1 g/dL (3.5-5.0); ALKALINE PHOSPHATASE 46 U/L (38-126); BLOOD UREA NITROGEN 25 mg/dL (7-17); CHLORIDE 103 mmol/L (98-107); Calcium 8.8 mg/dL (8.4-10.2); Carbon Dioxide 29 mmol/L (22-30); Creatinine 1 0.64 mg/dL (0.52-1.04); EST GLOMERULAR FILTRATION RATE > 60.0 ML/MIN; Glucose 89 mg/dL (74-106); Potassium 3.9 mmol/L (3.5-5.1); SGOT/AST 41 U/L (14-36); SGPT/ALT 22 U/L (0-35); SODIUM 137 mmol/L (137-145); Total Protein 5.8 g/dL (6.3-8.2)
[2021-07-17] MEDS: ENOXAPARIN SODIUM SQ SCH (09:03)
[2021-07-17] MEDS: OLUMIANT PO SCH (09:04)
[2021-07-17] MEDS: ZOLOFT 50 MG TABLET PO SCH (09:04)
[2021-07-17] MEDS: DECADRON 10MG INJ. IV SCH (09:04)
[2021-07-17] MEDS: NORVASC 5 MG PO SCH (09:04)
[2021-07-17] MEDS: Sodium Chloride 0.9% 10 ML FLUSH Syringe IV SCH ×3 (10:35→22:28)
[2021-07-18 06:34] LABS: Hemoglobin 13.2 gm/dl (12.0-16.0); Mean Cell Volume 92.5 fl (78-100); Mean Corpuscular Hemoglobin 29.1 pg (26-32); Mean Corpuscular Hgb Concent. 31.4 g/dl (32-36); Mean Platelet Volume 11.3 fl (7.5-11.0); Platelet Count 213 K/mm3 (150-450); Red Blood Count 4.54 M/mm3 (4.1-5.4); Red Cell Distribution Width 13.6 % (11.5-14.0)
[2021-07-18 07:28] LABS: ANION GAP 7.3 MEQ/L (5-15); BLOOD UREA NITROGEN 26 mg/dL (7-17); CHLORIDE 104 mmol/L (98-107); Calcium 8.5 mg/dL (8.4-10.2); Carbon Dioxide 29 mmol/L (22-30); Creatinine 1 0.72 mg/dL (0.52-1.04); EST GLOMERULAR FILTRATION RATE > 60.0 ML/MIN; Glucose 94 mg/dL (74-106); SODIUM 136 mmol/L (137-145)
[2021-07-18] MEDS: ZOLOFT 50 MG TABLET PO SCH (10:46)
[2021-07-18] MEDS: DECADRON 10MG INJ. IV SCH (10:46)
[2021-07-18] MEDS: ENOXAPARIN SODIUM SQ SCH (10:46)
[2021-07-18] MEDS: OLUMIANT PO SCH (10:46)
[2021-07-18] MEDS: NORVASC 5 MG PO SCH (10:46)
[2021-07-18] MEDS: Sodium Chloride 0.9% 10 ML FLUSH Syringe IV SCH ×3 (10:47→22:45)
[2021-07-18] MEDS: DULCOLAX 5 MG PO PRN (12:58)
--- NOTE | 2021-07-18 14:49 | XRAY ---
Indication: Positive Covid 19. Comparison: July 12, 2021. Portable chest again demonstrates diffuse bilateral airspace disease, little improved in the right lung and unchanged in the left. Heart and mediastinal structures within normal limits. Chronic right hemidiaphragm elevation. No new cardiopulmonary abnormalities.
[2021-07-18] MEDS: xanAX 0.25 MG PO PRN (23:17)
[2021-07-19] MEDS: Sodium Chloride 0.9% 10 ML FLUSH Syringe IV SCH ×3 (04:15→21:02)
[2021-07-19 06:57] LABS: ALKALINE PHOSPHATASE 41 U/L (38-126); ANION GAP 8.5 MEQ/L (5-15); BLOOD UREA NITROGEN 24 mg/dL (7-17); CHLORIDE 104 mmol/L (98-107); Calcium 8.7 mg/dL (8.4-10.2); Carbon Dioxide 29 mmol/L (22-30); Creatinine 1 0.64 mg/dL (0.52-1.04); EST GLOMERULAR FILTRATION RATE > 60.0 ML/MIN; Glucose 97 mg/dL (74-106); Potassium 4.2 mmol/L (3.5-5.1); SGOT/AST 31 U/L (14-36); SGPT/ALT 19 U/L (0-35); SODIUM 137 mmol/L (137-145); Total Protein 5.6 g/dL (6.3-8.2)
[2021-07-19 07:44] LABS: Absolute Neutrophil Ct (ANC) 7.53 (1.4-6.9); Basophil (Absolute #) 0 (0-0.4); Eosinophil (Absolute #) 0 (0-0.5); Hematocrit 42.1 % (35-47); Hemoglobin 13.3 gm/dl (12.0-16.0); Lymphocyte (Absolute #) 0.84 (1.0-4.6); Lymphocytes % 9.2 % (24.0-44.0); Mean Cell Volume 92.7 fl (78-100); Mean Corpuscular Hemoglobin 29.3 pg (26-32); Mean Corpuscular Hgb Concent. 31.6 g/dl (32-36); Mean Platelet Volume 11.2 fl (7.5-11.0); Monocyte (Absolute #) 0.75 (0.0-1.3); Monocytes % 8.2 % (0.0-12.0); Neutrophil % 82.6 % (36.0-66.0); Platelet Count 219 K/mm3 (150-450); Red Blood Count 4.54 M/mm3 (4.1-5.4); Red Cell Distribution Width 13.8 % (11.5-14.0); White Blood Count 9.1 K/mm3 (4.0-10.5)
[2021-07-19] MEDS: DECADRON 10MG INJ. IV SCH (09:31)
[2021-07-19] MEDS: ENOXAPARIN SODIUM SQ SCH (09:31)
[2021-07-19] MEDS: OLUMIANT PO SCH (09:32)
[2021-07-19] MEDS: ZOLOFT 50 MG TABLET PO SCH (09:32)
[2021-07-19] MEDS: NORVASC 5 MG PO SCH (09:32)
[2021-07-19] MEDS: DULCOLAX 5 MG PO PRN (09:33)
[2021-07-19] MEDS ORDERED: Ativan 2 MG/1 ML VIAL IV PRN (11:21)
[2021-07-19] MEDS: TYLENOL EXTRA STRENGTH 500 MG PO PRN (17:13)
[2021-07-19] MEDS: xanAX 0.25 MG PO PRN (21:02)
[2021-07-20] MEDS: ENOXAPARIN SODIUM SQ SCH (11:17)
[2021-07-20] MEDS: NORVASC 5 MG PO SCH (11:18)
[2021-07-20] MEDS: OLUMIANT PO SCH (11:18)
[2021-07-20] MEDS: DECADRON 10MG INJ. IV SCH (11:18)
[2021-07-20] MEDS: ZOLOFT 50 MG TABLET PO SCH (11:18)
[2021-07-20] MEDS: Sodium Chloride 0.9% 10 ML FLUSH Syringe IV SCH (11:19)
[2021-07-20 13:10] VITALS: BP 120/70
[2021-07-20 14:53] VITALS: PULSE 77; O2SAT 99
--- NOTE | 2021-07-21 08:12 | PROG NOTE ---
DATE: 07/19/2021 HISTORY: The patient is extremely demanding to go home. She is on 10 liters by mask which would be difficult to take care of her at home. She is able to sit up and walk a little bit. She has been COVID positive for a long time. She has been here approximately 20 days and she was at [facility] for several days before then so she may well be COVID negative. The family does not want her to go home as Hospice will not see her if she is COVID positive and she certainly probably would survive this if she continued to be treated although she may be on oxygen for the rest of her life. The plan at this time would be to decrease her O2 from 10 to 5 and see if she tolerates the feeling of hypoxia or maybe she will not be hypoxic. We could probably let her go home and will probably have to let her go home if she tolerates the 5 liters. I will talk to her in an hour or so. She is mentally alert, orientated. Her D-dimer unfortunately is still elevated at 941 which is down from earlier when it was like 12,000.
--- NOTE | 2021-07-24 08:39 | DS ---
ADMISSION DIAGNOSES: 1) COVID pneumonia. 2) Mild delirium. 3) Severe hypoxia. DISCHARGE DIAGNOSES: 1) COVID PNEUMONIA. 2) MILD DELIRIUM. 3) SEVERE HYPOXIA. HOSPITAL COURSE: The patient is a 71 year-old white female who was transferred from [facility], desired to be closer to home. When admitted she was somewhat confused. I have never seen the patient before. She was very short of breath. She was hypoxic and needed 5 liters of oxygen initially. Her D-dimer was markedly elevated. Her chest x-ray showed bilateral COVID with significant infiltrates. She had some delirium which was worse at night which did go away before she was discharged. Her D-dimer was high as 1,700 and gradually came down. Her O2's took a long time with 15 liters. Chest x-ray really remained about the same. D-dimer on 07/15/2021 was still elevated at 1,300 which correlated with her symptoms, still very significant and short of breath on oxygen. D-dimer on 07/10/2021 was 4,000. She was feeling somewhat better. She was very depressed and upset about being here. She is very upset about prolonged stay although with her oxygen just did not allow her to go home. I did some bartering to make sure she could stay. I am sure she would not be able to stay home on 5 liters as she will need BiPAP. The last few days before discharge she was improved. Finally, I felt it was safe to send her home on 07/20/2021 on prednisone 40 mg x5 days, 20 mg x5 days. Her O2 was on 3 liters. She is to continue Albuterol 2 puffs every 4 hours PRN, Xanax 0.25 h.s. PRN, Norvasc 5 q.d. She is off of her Lovenox. She is off of hydrochlorothiazide and put her on some lisinopril 20. She will continue on her Zoloft 50, ubidecarenone 100 mg q.d. for chronic chest pain. She has an Oximeter. She is to call if the O2 drops below 90, follow up with her own physician in two to three weeks, stay isolated for another week. She has really been ill with this for about a month. She would no longer be contagious. PROGNOSIS: [place] to be good.
== END 2021-07-20 14:32 | disposition home or self-care (01) | DRG 179 ==
LOC: INTOOBSV 20:42 → UNDOADMOB 20:42 → MED SURG 20:42 → OBSVTOIN 20:42
PROVIDERS: ADMIT Family Medicine; ATTEND Family Medicine
DX: U07.1 COVID-19 (principal); J12.82 Pneumonia due to coronavirus disease 2019; R41.0 Disorientation, unspecified; R09.02 Hypoxemia; R79.1 Abnormal coagulation profile; R53.1 Weakness; G43.909 Migraine, unspecified, not intractable, without status migrainosus; R53.83 Other fatigue; Z79.899 Other long term (current) drug therapy
CPT/HCPCS: 36415; 71045; 80048; 80053; 81001; 85025; 85027; 85379; 85610; 94667; 94668; 94762; J1100; J1650; A9270-GY